=== PATIENT | female | born 1990 | race Caucasian/White ===

== ENCOUNTER 2016-08-19 13:16 | Emergency (ER) | payer OTHER ==
[~2016-08-19 13:16] MED LIST: BACTRIM DS TABL1 TA1 PO; BENTYL10 MG PO; BENTYL20 MG PO; KEFLEX500 MG PO; MACROBID100 MG PO; NO MEDICATIONS; PHENERGAN12.5 MG DOB; PHENERGAN25 MG PO; ULTRAM PO; ZOFRAN PO; ZOLOFT; [UNRECOGNIZED DRUG - OTHER] PO
[2016-08-19 13:44] LABS: INFLUENZA A NEG (NEG); INFLUENZA B NEG (NEG)
== END 2016-08-19 13:55 | disposition home or self-care (01) ==
LOC: SED 13:16
PROVIDERS: Nurse Practitioner
DX: J11.1 Influenza due to unidentified influenza virus with other respiratory manifestations (principal); F17.200 Nicotine dependence, unspecified, uncomplicated
CPT/HCPCS: 87651; 87804; 87880; 99282